=== PATIENT | female | born 1945 | race Caucasian/White ===

== ENCOUNTER → 2024-01-23 | Outpatient (CLI) | payer MEDICARE ==
[2024-01-23 14:53] LABS: HCT 49.3 % (37.2-46.3); MCH 32.7 pg (27.0-32.0); MCHC 32.5 g/dL (32.0-37.0); MCV 100.6 FL (80.0-97.0); Mean Platelet Volume 12.1 FL (9.5-12.2); NRBC Per 100 WBC 0 X 10*3/uL (0.00-0.01); Platelet Count 338 X 10*3/uL (140-440); RDW 13.7 % (11.5-14.5); WBC 9.84 X 10*3/uL (4.50-10.00)
[2024-01-23 15:37] LABS: Blood Urea Nitrogen 19.1 mg/dL (9.0-27.0); Carbon Dioxide 30.6 mmol/L (21.6-31.8); Chloride 98 mmol/L (96-109); Potassium 4.9 mmol/L (3.5-5.5); Sodium 140 mmol/L (135-145)
== END | disposition home or self-care (01) ==
LOC: LABWHC1 08:28
PROVIDERS: ATTEND Internal Medicine Cardiovascular Disease
DX: Z01.818 Encounter for other preprocedural examination (principal); I50.22 Chronic systolic (congestive) heart failure
CPT/HCPCS: 80051; 82565; 84520; 85027

== ENCOUNTER 2024-01-26 09:00 | Day surgery (SDC) | payer MEDICARE ==
[~2024-01-26 09:00] MED LIST: ALPRAZolam 0.25 MG TAB PO PRN; ALPRAZolam 0.5 MG TAB PO PRN; HEPARIN SODIUM,PORCINE (1 ML) 2,500 UNIT in SODIUM CHLORIDE 0.9% 250 ML IRRIGATION PRN; HEPARIN SODIUM,PORCINE 10,000 UNIT in SODIUM CHLORIDE 0.9% 1,000 ML IRRIGATION PRN; NITROGLYCERIN SL TABS 0.4 MG TAB SUBLINGUAL PRN
[2024-01-26 09:43] VITALS: RESP 16; TEMP 97.9
[2024-01-26] MEDS: SODIUM CHLORIDE 0.9% 1,000 ML in EMPTY BAG 1 BAG IV SCH (09:55)
[2024-01-26] MEDS: ASPIRIN 325 MG TAB PO STA (09:55)
[2024-01-26] MEDS: IV FLUID CONTINUATION 1,000 ML IV ONE (09:56)
[2024-01-26] MEDS: fentaNYL (PF) 50 MCG/ML 2 ML AMP IVP ONE (10:36)
[2024-01-26] MEDS: MIDAZOLAM 2 MG/2 ML VIAL IVP ONE (10:36)
[2024-01-26] MEDS: LIDOCAINE 1% INJ 10MG/ML (20 ML MDV) SQ ONE (10:38)
[2024-01-26] MEDS: VERAPAMIL SYRINGE (5 MG/10 ML) INTRAARTER ONE (10:39)
[2024-01-26] MEDS: HEPARIN SODIUM 1,000 UN/ML (10ML VL) IVP ONE (10:45)
[2024-01-26] MEDS: SODIUM CHLORIDE 0.9% 1,000 ML IV ONE (10:45)
[2024-01-26] MEDS: HEPARIN SODIUM,PORCINE 10,000 UNIT in SODIUM CHLORIDE 0.9% 1,000 ML IRRIGATION ONE (10:46)
[2024-01-26] MEDS: HEPARIN SODIUM,PORCINE (1 ML) 2,500 UNIT in SODIUM CHLORIDE 0.9% 250 ML IRRIGATION ONE (10:46)
[2024-01-26] MEDS: IOPAMIDOL-300 100ML BTL INJ ONE (10:52)
[2024-01-26] MEDS ORDERED: RX INFO: IV CONTRAST WAS GIVEN 1 EACH MISC MISCELLANE PRN (11:05)
[2024-01-26] MEDS ORDERED: SODIUM CHLORIDE 0.9% 1,000 ML IV SCH (11:15)
--- NOTE | 2024-01-26 11:23 | P.PN ---
Progress Note - Text Patient is s/p cardiac cath with Dr. Powers (please refer to procedure note). Patient with severe cardiomyopathy with an EF 0f 20%. Patient will require lifevest at time of discharge to prevent sudden cardiac .
[2024-01-26 16:21] VITALS: BP 124/75; PULSE 83
--- NOTE | 2024-01-26 20:46 | LTR ---
Dear Raheem: I performed cardiac catheterization on Juany Treviño. This is a pleasant 78-year-old lady who you referred to me for new onset congestive heart failure and cardiomyopathy. Her cardiac catheterization revealed normal coronary arteries. She has dilated cardiomyopathy and I will try and organize a LifeVest for her and at the appropriate time refer her for prophylactic AICD. Thank you for giving me the privilege for participating in the care of this pleasant lady. MMTAISHA / IJN: [id number] /
--- NOTE | 2024-01-26 20:46 | CC ---
CARDIAC CATHETERIZATION REPORT INDICATION: Cardiomyopathy with new onset systolic heart failure. PROCEDURE NOTE: After obtaining informed consent, left heart catheterization and coronary angiogram were performed via the right radial artery using standard Morgan catheters. The patient tolerated the procedure well without any obvious immediate complications. The patient received moderate conscious sedation. Total sedation time was 15 minutes. Right radial artery access was obtained using Seldinger technique. A 6-Brune[place] sheath was placed. Catheters and wires were floated into the ascending aorta under fluoroscopic guidance. The patient received verapamil and heparin per protocol and a TR band was used for hemostasis. FINDINGS: 1. HEMODYNAMICS: Left ventricular end-diastolic pressure is 22 mm. There is significant gradient across the aortic valve. 2. LEFT VENTRICULOGRAM: Left ventriculogram was not performed. 3. ANGIOGRAPHIC DATA: a.Right coronary artery: Right coronary artery is a large dominant vessel and is free of stenosis. b.Left main coronary artery is a normal-sized vessel and is free of significant disease, divides into left anterior descending coronary artery and circumflex coronary artery. LAD and its branches, circumflex coronary artery and its branches are free of significant stenosis. CONCLUSIONS: 1. Nonischemic cardiomyopathy with severe LV dysfunction. 2. Normal coronary arteries. PLAN: The patient will be treated with continued medical therapy. Re-evaluate her LV function in 6 months' time and if she still has LV systolic dysfunction, refer her to EP for AICD placement. The patient will have a LifeVest done. MMTAISHA / JALEESAN: [id number] /
== END 2024-01-26 14:51 | disposition home or self-care (01) ==
LOC: CATHCVL 09:00
PROVIDERS: ATTEND Internal Medicine Cardiovascular Disease
DX: I42.8 Other cardiomyopathies (principal); I50.22 Chronic systolic (congestive) heart failure; I47.11 Inappropriate sinus tachycardia, so stated; Z95.810 Presence of automatic (implantable) cardiac defibrillator; Z79.899 Other long term (current) drug therapy
CPT/HCPCS: 93458; J2250; J1644 ×3; J2003; J3010; Q9967